=== PATIENT | female | born 1970 | race African-American/Black ===

== ENCOUNTER 2017-10-27 04:54 | Inpatient (IN) | payer OTHER ==
[2017-10-19 14:30] VITALS: BMI 38.7
[2017-10-27] MEDS ORDERED: CEFAZOLIN 2 GM in DEXTROSE 5%-WATER - 100 ML IVPB ONE (06:38)
--- NOTE | 2017-10-27 06:38 | HP ---
History & Physical Update - History History: No Change - Physical Physical: No Change - Assessment Assessment: No Change - Plan Plan: No Change (No change in my HP on 10/19/17)
[2017-10-27] MEDS ORDERED: PHENAZOPYRIDINE HCL 100 MG TABLET (FP) PO STA (06:41)
[2017-10-27] MEDS ORDERED: ROCURONIUM BROMIDE 50 MG/5 ML VIAL ONE ×2 (07:07→09:15)
[2017-10-27] MEDS ORDERED: PROPOFOL 20 ML ONE (07:07)
[2017-10-27] MEDS ORDERED: fentaNYL CITRATE 250 MCG/5 ML VIAL ONE (07:07)
[2017-10-27] MEDS ORDERED: SUCCINYLCHOLINE CHLORIDE 200 MG/10 ML VIAL ONE (07:07)
[2017-10-27] MEDS ORDERED: DEXAMETHASONE SOD PHOSPHATE 4 MG/1 ML VIAL ONE (07:07)
[2017-10-27] MEDS ORDERED: LIDOCAINE HCL/PF 2% SDV 5ML VIAL ONE (07:07)
[2017-10-27] MEDS ORDERED: MIDAZOLAM HCL 2 MG/2 ML SINGLE DOSE VIAL ONE ×3 (07:07→07:13)
[2017-10-27] MEDS ORDERED: DEXAMETHASONE SOD PHOSPHATE/PF 10 MG/ML SDV ONE (07:12)
[2017-10-27] MEDS ORDERED: ROPIVACAINE HCL 0.5% 30ML VIAL ONE (07:13)
[2017-10-27] MEDS ORDERED: DESFLURANE GAS 240 ML BOTTLE IH ONE (07:14)
[2017-10-27] MEDS ORDERED: ceFAZolin SODIUM 1 GM VIAL ONE ×2 (07:23→08:11)
[2017-10-27] MEDS ORDERED: PHENAZOPYRIDINE HCL 100 MG TABLET (FP) ONE (07:23)
[2017-10-27] MEDS ORDERED: ceFAZolin SODIUM 1 GM VIAL IVPB ONE (08:11)
[2017-10-27] MEDS ORDERED: ePHEDrine SULFATE 50 MG/1 ML AMPULE ONE (08:24)
[2017-10-27] MEDS ORDERED: PHENYLEPHRINE HCL 10 MG/1 ML SINGLE DOSE VIAL ONE (09:19)
[2017-10-27] MEDS ORDERED: GLYCOPYRROLATE 0.2 MG/1 ML VIAL ONE (09:39)
[2017-10-27] MEDS ORDERED: NEOSTIGMINE METHYLSULFATE 0.5 MG/ML - 10 ML MDV ONE (09:39)
[2017-10-27] MEDS ORDERED: PROMETHAZINE HCL 25 MG/1 ML VIAL IVPB PRN (10:03)
[2017-10-27] MEDS ORDERED: ONDANSETRON 4 MG/2 ML VIAL IVPUSH PRN (10:03)
[2017-10-27] MEDS ORDERED: DEXAMETHASONE SOD PHOSPHATE 4 MG/1 ML VIAL IVPUSH PRN (10:03)
[2017-10-27] MEDS ORDERED: HYDROmorphone *PCA* 10MG/50ML DISP.SYRIN PCA SCH (10:15)
--- NOTE | 2017-10-27 10:33 | OP ---
DATE OF OPERATION: 10/27/2017 PREOPERATIVE DIAGNOSIS: Leiomyomatous uterus, menorrhagia, intramural myomas, and subserosal myomas. OPERATION: Total abdominal hysterectomy and bilateral salpingectomy and removal of peritoneal cysts. POSTOPERATIVE DIAGNOSIS: Leiomyomatous uterus, menorrhagia, intramural myomas, and subserosal myomas SURGEON: Kenna Cottrell MD TRACK SERVICE WORKER: RAFFAELE Rocha ANESTHESIA: General. FINDINGS: Uterus to approximately 14 cm in size with multiple myomas noted within the uterus, subserosal, intramural. Tubes normal. Ovaries normal. PROCEDURE: Patient was taken to the operating room, placed in supine position, prepped and draped in the usual sterile fashion. A time-out was performed in accordance with hospital regulations after Victoria catheter had been inserted. Scalpel was then used to make a Pfannenstiel skin incision through the patients previous scar. Cautery was then used to go through the layers of abdominal wall through to the fascia. Fascia was cut in the midline, and cautery was then used to open the fascia in smiling fashion. Yung was then used to bluntly and sharply dissect the rectus muscle off the fascia. Muscle was split in the midline. Peritoneal cavity was then entered and carried up and downwards. Uterus was exteriorized. Bladder was packed out of the operative field. Utero-ovarian ligaments identified and clamped and cut bilaterally. Uterine arteries were skeletonized. Round ligaments were identified and clamped and cut using LigaSure. Uterine arteries were then clamped and cut using LigaSure bilaterally. Cardinal ligaments identified and clamped and cut down to the level of the cervix. Vagina was then entered anteriorly, and Sylvie scissors were then used to cut the cervix away from the vagina. Specimen was submitted to pathology Continuous and locking stitch in the cuff was then done. Ureter were identified and found to have peristalsis bilaterally. All pedicles were checked and found to be hemostatic. Peritoneum was then grasped and closed using 0 Vicryl suture. Muscles were approximated midline using 0 Vicryl suture. Fascia was then closed using 0 Vicryl suture in 2 parts. Subcutaneous was closed using 0 Biosyn suture. Skin was then closed using 2-0 Vicryl in a subcuticular fashion. Wounds were washed and dressed. Patient tolerated the procedure well. Estimated blood loss 600 mL. Steri-Strips had been placed. Count was correct. Abdominal sweeps had been done. Ovaries remained intact, and patient was found to be normal. Shannan [id number] MTDD
[2017-10-27] MEDS ORDERED: ELECTROLYTE-148 SOLN 1,000 ML IV SCH (11:00)
[2017-10-27] MEDS ORDERED: HYDROmorphone *PCA* 10MG/50ML DISP.SYRIN PCA ONE (11:50)
[2017-10-27] MEDS ORDERED: LACTATED RINGERS SOLUTION 1,000 ML IV SCH (13:30)
[2017-10-27] MEDS: CEFAZOLIN 1 GM/D5W 1 GM/50 ML BAG IVPB SCH ×2 (14:48→22:59)
[2017-10-27] MEDS: SIMETHICONE 80 MG TAB.CHEW (FP) PO SCH (14:48)
[2017-10-27 17:46] LABS: BASO % 0.1 % (0-2.0); HEMATOCRIT 34.9 % (32.4-45.2); HEMOGLOBIN 11.5 GM/dL (10.7-15.3); LYMPH % 3.8 % (8-40); MCH 26.3 pg (25.7-33.7); MCHC 32.9 g/dl (32.0-36.0); MEAN CELL VOLUME 79.8 fl (80-96); MEAN PLT VOLUME 9.5 fl (7.5-11.1); MONO % 1.2 % (3.8-10.2); NEUT % 94.9 % (42.8-82.8); PLATELET COUNT 196 K/MM3 (134-434); RBC 4.37 M/mm3 (3.60-5.2); RDW 14.7 % (11.6-15.6); WHITE BLOOD COUNT 11.8 K/mm3 (4.0-10.0)
[2017-10-27 18:11] LABS: ANION GAP 14 (8-16); BLOOD UREA NITROGEN 18 mg/dL (7-18); CALCIUM 8.3 mg/dL (8.5-10.1); CHLORIDE 100 mmol/L (98-107); CO2 24 mmol/L (21-32); CREATININE 1.3 mg/dL (0.55-1.02); GLUCOSE,RANDOM 181 mg/dL (74-106); POTASSIUM 3.4 mmol/L (3.5-5.1); SODIUM 138 mmol/L (136-145)
--- NOTE | 2017-10-27 18:50 | OP ---
Operative Note - Note: Operative Date: 10/27/17 Pre-Operative Diagnosis: Leiomyomatous Uterus. Intramural myoma Operation: Total Hysterectomy. Bilateral salpingectomy Findings: Uterus 12 cm Post-Operative Diagnosis: Same as Pre-op Surgeon: Kenna Cottrell Gem Expert: Josefina Reese Anesthesia: General Estimated Blood Loss (mls): 600 Operative Report Dictated: Yes
--- NOTE | 2017-10-28 08:24 | SURG ---
Surgery Digital Librarian Note Digital Librarian: Josefina Reese PA-C Date of Service: 10/27/17 Diagnosis: Leiomyomatous Uterus. Intramural myoma Procedure: Total Hysterectomy. Bilateral salpingectomy I was present for the entirety of the operative procedure. For further detail, please refer to operative report. Visit type - Case Type Case Type: Scheduled Admission - Emergency Emergency Visit: No - New patient This patient is new to me today: Yes Date on this admission: 10/28/17
[2017-10-28 08:45] LABS: BASO % 0.1 % (0-2.0); HEMATOCRIT 30.6 % (32.4-45.2); LYMPH % 6.7 % (8-40); MCH 25.7 pg (25.7-33.7); MCHC 32.5 g/dl (32.0-36.0); MEAN CELL VOLUME 79.2 fl (80-96); MEAN PLT VOLUME 9.3 fl (7.5-11.1); MONO % 3.4 % (3.8-10.2); NEUT % 89.8 % (42.8-82.8); PLATELET COUNT 173 K/MM3 (134-434); RBC 3.87 M/mm3 (3.60-5.2); RDW 14.7 % (11.6-15.6)
[2017-10-28 09:07] LABS: ANION GAP 11 (8-16); BLOOD UREA NITROGEN 14 mg/dL (7-18); CALCIUM 7.9 mg/dL (8.5-10.1); CHLORIDE 102 mmol/L (98-107); CO2 27 mmol/L (21-32); CREATININE 0.9 mg/dL (0.55-1.02); GLUCOSE,RANDOM 115 mg/dL (74-106); POTASSIUM 3.5 mmol/L (3.5-5.1); SODIUM 140 mmol/L (136-145)
[2017-10-28] MEDS ORDERED: oxyCODONE HCL 5 MG TABLET PO PRN ×2 (09:19)
--- NOTE | 2017-10-28 09:26 | PN ---
Progress Note (short form) - Note Progress Note: Surgery POD #1 Total abdominal hysterectomy with bilateral salpingectomy. Patient seen and examined at bedside. Her olivares is out and she has been OOB ambulating to the Bathroom and voiding without any problems. She states her pain is contolled but has some dizziness most likely secondary to the medication. She is tolerating a clear diet and denies any CP, SOB, Fever, Chills n/V. Vital Signs Temp 98.9 F 10/28/17 09:00 Pulse 92 H 10/28/17 05:00 Resp 20 10/28/17 09:00 BP 95/50 10/28/17 09:00 Pulse Ox 97 10/27/17 13:12 Intake & Output 10/27/17 10/27/17 10/28/17 11:59 23:59 11:59 Intake Total 2300 1100 1400 Output Total 6048 154 7379 Balance 1150 300 -200 Intake: IV 2300 600 1000 Lactated Ringers Solution 600 1,000 ml @ 75 mls/hr IV ASDIR LILIAN Rx#:[id number] Plasma-Lyte 148 - 1,000 1000 ml @ 125 mls/hr IV ASDIR LILIAN Rx#:[id number] IVPB 150 Oral 350 400 Output: Urine 101 164 2427 Olivares 400 1000 Void 600 Estimated Blood Loss 500 Other: Voiding Method Indwelling Catheter Toilet CBC, BMP 10/28/17 08:30 10/28/17 08:30 PE: A&Ox3, NAD unlabored resp on RA Abdomen: Obese, soft with diffuse TTP thoughout appropriate to status. non- distended. Incision C/D/I with steri strips, no d/c or tracking erythema B/L LE compartments soft, supple and non-tender. Scds/teds on with + pedal pulses Problem List - Problems (1) Leiomyoma Assessment/Plan: POD #1 DAYNA/salpingectomy, patient doing well. Plan: 1) Continue DVT prophylaxis with lovenox, b/l teds and scds 2) d/c PATENT LEATHER SORTER start OxyCONTIN 10mg BID 3) OOB with assist 4) d/c planing for tomorrow Code(s): D21.9 - BENIGN NEOPLASM OF CONNECTIVE AND OTHER SOFT TISSUE, UNSP
[2017-10-28] MEDS ORDERED: HYDROCHLOROTHIAZIDE 12.5 MG CAPSULE (FP) PO SCH (10:00)
[2017-10-28] MEDS ORDERED: LISINOPRIL 10 MG TABLET (FP) PO SCH (10:00)
[2017-10-28] MEDS: LISINOPRIL 10 MG TABLET (FP) PO SCH ×2 (10:14→12:28)
[2017-10-28] MEDS: HYDROCHLOROTHIAZIDE 12.5 MG CAPSULE (FP) PO SCH ×2 (10:14→12:08)
[2017-10-28] MEDS: FERROUS SO4 325 MG TABLET (FP) PO SCH (10:15)
[2017-10-28] MEDS: ENOXAPARIN NA (PORCINE) 40 MG/0.4 ML DISP.SYRIN SQ SCH (10:15)
[2017-10-28] MEDS: SIMETHICONE 80 MG TAB.CHEW (FP) PO SCH (10:15)
[2017-10-28] MEDS: oxyCODONE HCL 10 MG SUSTAINED ACTING TABLET PO SCH ×2 (11:14→21:45)
--- NOTE | 2017-10-28 13:55 | PATH ---
Surgical Pathology Report Patient Name: LUKE NG [facility]. Rec. 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 Specimen(s) Received A: PERITONEAL CYST B: UTERUS CERVIX BILATERAL FALLOPIAN TUBES Clinical History Leiomyoma of uterus Final Diagnosis A. PERITONEAL CYST, EXCISION: BENIGN MESOTHELIAL CYSTS. B. UTERUS AND CERVIX WITH BILATERAL FALLOPIAN TUBES, HYSTERECTOMY AND BILATERAL SALPINGECTOMY: UTERUS AND CERVIX, 601 GRAMS, WITH LEIOMYOMATA WITH DEGENERATIVE CHANGES, ADENOMYOSIS, SECRETORY ENDOMETRIUM, AND ACUTE AND CHRONIC INFLAMMATION OF CERVIX. BENIGN BILATERAL FALLOPIAN TUBES PRESENT. Electronically Signed Beau Fagan M.D. Gross Description A. Received in formalin labeled "peritoneal cyst," are 2 intact cysts measuring 2.4 x 1.3 x 0.3 cm and 5.5 x 4.3 x 0.7 cm. The cysts are translucent and contain yellow serous fluid. Manager Primary sections are submitted in one cassette. B. Received in formalin labeled "uterus, cervix, bilateral fallopian tubes," is a 601 g uterus with an attached cervix and bilateral attached fallopian tubes. The specimen measures 15 cm from superior to inferior, 10 cm from left to right and 9.5 cm from anterior to posterior. The serosa is giordano-pink and smooth. The attached cervix measures 5 cm in length and averages 2.7 cm in diameter. The ectocervix is pink-giordano, smooth and glistening. The endocervix is unremarkable. The endometrial cavity measures 5 cm in length and 2.4 cm from cornu to cornu. The endometrium is giordano-red and averages 0.2 cm in thickness. There are multiple intramural nodules present, measuring up to 7 cm in greatest dimension. The largest intramural nodule displays degenerative changes. The remaining myometrium is giordano-pink and measures up to 7 cm in thickness. The left fimbriated fallopian tube measures 5 cm in length. The outer surface is hylton purple and smooth. Sectioning reveals an unremarkable lumen. The right fimbriated fallopian tube measures 5 cm in length. The outer surface is hylton purple with a 1.8 cm in greatest dimension paratubal cyst attached. Sectioning of the fallopian tube reveals an unremarkable lumen. Manager Primary sections are submitted in 14 cassettes as follows: 1-anterior cervix; 2-posterior cervix; 2-1-wxlnpyyp endomyometrium; 1-5-xnwipmlig endomyometrium; 7-9-largest intramural nodule; 10-additional intramural nodules; 11-left fallopian tube fimbria; 12-cross sections of left fallopian tube; 13-right fallopian tube fimbria; 14-cross sections of right fallopian tube and paratubal cyst. 10/27/2017 [facility]10/27/2017
--- NOTE | 2017-10-28 15:20 | PN ---
Progress Note (short form) - Note Progress Note: Anesthesia Pos op note, BUFFER CHROME note. POD#1, S/P DAYNA , bilateral salpingectomy, under GETA , BUFFER CHROME post op. Pat seen and examined. VSS. Pain well controlled. BUFFER CHROME, D/C'd. on po meds. No apparent post anesthesia complications.Signed off.
--- NOTE | 2017-10-29 06:46 | DS ---
"Physical Exam-PRODUCER DIRECTOR Vital Signs: Vital Signs Temperature 99.6 F 10/29/17 05:00 Pulse Rate 84 10/29/17 05:00 Respiratory Rate 20 10/29/17 05:00 Blood Pressure 94/63 10/29/17 05:00 O2 Sat by Pulse Oximetry (%) 97 10/28/17 21:00 Constitutional: Yes: Well Nourished, No Distress Neck: Yes: WNL, Supple Gastrointestinal: Yes: WNL, Soft, Abdomen, Obese Breast(s): Yes: WNL Musculoskeletal: Yes: WNL Wound/Incision: Yes: Clean/Dry, Well Approximated, Steri Strips, Dressing Dry and Intact Neurological: Yes: WNL, Alert, Oriented Labs: CBC, BMP 10/28/17 08:30 10/28/17 08:30 Discharge Summary Reason For Visit: LEIOMYOMA OF UTERUS Current Active Problems Leiomyoma (Acute) Procedures: Principal: Total abdominal hysterectomy. bilateral salpingectomy Condition: Good - Instructions Diet, Activity, Other Instructions: Dr. Kenan Cottrell Electrical And Instrumentation Manager discharge instructions Physical activity Resume your normal everyday activity as tolerated no heavy lifting or exercise until seen by your surgeon. You may walk unlimited candelario of and climb stairs. You may resume driving the car when you feel safe and comfortable behind the wheel and are not taking narcotics. No sexual activity as instructed by Dr. Cottrell. Wound care If you have a bandage, leave it on, and keep dry for 48-72 hours. After that time discard the outer bandage. The tapes on the skin under the outer bandage should be left in place. They will peel off in the next 7 to 10 days. Do Not Peel them off. You may shower the day but do not submerge the incision. Do not apply any lotions or ointments to the incision. Diet There are no dietary restrictions. Eat healthy, high-fiber foods. Drink 6 to 8 glasses of liquid each day. This will assist in keeping your bowels are regular. Pain management You may take Tylenol or acetaminophen or Ibuprofen (for example, Motrin, Advil etc.) from my pain prescription medication is ordered should be taken as prescribed for moderate to severe pain. Please note that your prescription contains Tylenol and additional Tylenol should not be taken at the same time as this may result in and overdose. Call Dr. Cottrell for any of the following: Severe pain not relieved by medication Fever of 101 or higher Excessive bleeding or drainage on dressing Inability to urinate If you experience any chest pain or shortness of breath seek emergency treatment immediately. Call the office at [phone] to confirm your follow up appointment approximately 7 days post-op. This report was requested by: Josefina Beltran | Reference #: [id number] Disposition: HOME - Home Medications Comprehensive Discharge Medication List: Ambulatory Orders Ferrous Sulfate [Feosol] 325 mg PO DAILY 10/19/17 Lisinopril/Hydrochlorothiazide [Lisinopril-Hctz 20-12.5 mg Tab] 10 mg PO DAILY 10/19/17 Oxycodone HCl/Acetaminophen [Percocet 5-325 mg Tablet] 1 - 2 tab PO Q4H #20 tablet MDD 6 10/27/17"
[2017-10-29 08:31] LABS: HEMOGLOBIN 9.7 GM/dL (10.7-15.3); MCH 26.9 pg (25.7-33.7); MCHC 33.5 g/dl (32.0-36.0); MEAN CELL VOLUME 80.2 fl (80-96); MEAN PLT VOLUME 8.8 fl (7.5-11.1); PLATELET COUNT 158 K/MM3 (134-434); RBC 3.62 M/mm3 (3.60-5.2); RDW 14.5 % (11.6-15.6); WHITE BLOOD COUNT 8.2 K/mm3 (4.0-10.0)
[2017-10-29] MEDS: SIMETHICONE 80 MG TAB.CHEW (FP) PO SCH (09:25)
[2017-10-29] MEDS: FERROUS SO4 325 MG TABLET (FP) PO SCH (09:25)
[2017-10-29] MEDS: oxyCODONE HCL 10 MG SUSTAINED ACTING TABLET PO SCH (09:25)
[2017-10-29] MEDS: ENOXAPARIN NA (PORCINE) 40 MG/0.4 ML DISP.SYRIN SQ SCH (09:25)
[2017-10-29] MEDS: HYDROCHLOROTHIAZIDE 12.5 MG CAPSULE (FP) PO SCH (09:36)
[2017-10-29] MEDS: LISINOPRIL 10 MG TABLET (FP) PO SCH (09:37)
[2017-10-29 09:48] VITALS: BP 106/70; PULSE 87; TEMP 99
== END 2017-10-29 13:00 | disposition home or self-care (01) | DRG 743 ==
LOC: JSAMEDAYSX 04:54 → EDSTATUS 08:00 → J3W 12:47
PROVIDERS: ADMIT Obstetrics & Gynecology; ATTEND Obstetrics & Gynecology
PROC: 0UB70ZZ Excision of Bilateral Fallopian Tubes, Open Approach (ICD-10-PCS; 2017-10-27)
PROC: 0DBW0ZZ Excision of Peritoneum, Open Approach (ICD-10-PCS; 2017-10-27)
PROC: 0UT90ZZ Resection of Uterus, Open Approach (ICD-10-PCS; principal; 2017-10-27 07:30)
DX: D25.1 Intramural leiomyoma of uterus (principal); D25.2 Subserosal leiomyoma of uterus; K66.8 Other specified disorders of peritoneum; N92.0 Excessive and frequent menstruation with regular cycle
CPT/HCPCS: 36415; 80048; 84702; 85025; 85027; 86850; 86900; 86901; 94760

== ENCOUNTER 2019-10-16 17:06 | Inpatient (IN) | payer OTHER ==
[2019-10-16] MEDS ORDERED: ACETAMINOPHEN 325 MG TABLET (FP) PO ONE (17:30)
--- NOTE | 2019-10-16 17:30 | PDOC ---
Rapid Medical Evaluation Chief Complaint: Respiratory Time Seen by Provider: 10/16/19 17:19 Medical Evaluation: Allergies Allergy/AdvReac Type Severity Reaction Status Date / Time No Known Allergies Allergy Verified 10/27/17 07:18 10/16/19 17:26 I have performed a brief in-person evaluation of this patient. The patient presents with a chief complaint of: pt with h/o HTN present with complains of 2 weeks h/o persistent cough, weakness, body aches, N/V. pt report tested positive for influenza 2 weeks ago and has been taken many OTC meds but her symptoms is getting worse instead of getting better. Pt report weakness and whole body aches. Denies any recent travel or sick contact Pertinent physical exam findings: febrile of 100.6F. persistent cough throughout exam. pt looks sick. lungs CTAB. I have ordered the following: CXR, Tylenol, duoneb The patient will proceed to the ED for further evaluation. Discharge Disposition - Diagnosis URI with cough and congestion - Discharge Dispostion Condition at time of disposition: Stable - Referrals - Patient Instructions - Post Discharge Activity
[2019-10-16] MEDS ORDERED: ACETAMINOPHEN 325 MG TABLET (FP) ONE (17:58)
[2019-10-16] MEDS ORDERED: LACTATED RINGERS SOLUTION 1000 ML INFUS.BAG IV ONE (18:30)
--- NOTE | 2019-10-16 19:39 | PDOC ---
History of Present Illness - General Chief Complaint: Shortness of Breath Stated Complaint: COUGH/ BODY CHILLS Time Seen by Provider: 10/16/19 17:19 History Source: Patient Exam Limitations: No Limitations - History of Present Illness Initial Comments: 49 y/o female presenting to [facility] complaining of worsening SOB, cough, fevers, chills, fatigue, and intermittent episodes of nonbloody, non-bilious vomiting. Was seen as this facility two weeks ago and diagnosed with Influenza B. Pt has been using OTC NSAIDS and Acetaminophen without improvement in symptoms. 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 Sick Contacts: Yes, believes a coworker is a PUI for COVID-19 Recent Travel: No Pt's Cell Past History - Past Medical History Allergies/Adverse Reactions: Allergies Allergy/AdvReac Type Severity Reaction Status Date / Time No Known Allergies Allergy Verified 10/16/19 17:27 Home Medications: Ambulatory Orders Ferrous Sulfate [Feosol] 325 mg PO DAILY 10/19/17 Lisinopril/Hydrochlorothiazide [Lisinopril-Hctz 20-12.5 mg Tab] 10 mg PO DAILY 10/19/17 Oxycodone HCl/Acetaminophen [Percocet 5-325 mg Tablet] 1 - 2 tab PO Q4H #20 tablet MDD 6 10/27/17 Anemia: No Asthma: Yes Cancer: No Cardiac Disorders: No CVA: No CHF: No Dementia: No Diabetes: No GI Disorders: No Disorders: No HTN: Yes Hypercholesterolemia: No Liver Disease: No Seizures: No Thyroid Disease: No - Surgical History Abdominal Surgery: Yes - Psycho Social/Smoking Cessation Hx Smoking History: Never smoked Hx Alcohol Use: No Drug/Substance Use Hx: No Substance Use Type: Alcohol Hx Substance Use Treatment: No Review of Systems - Review of Systems All Other Systems: Reviewed and Negative *Physical Exam - Vital Signs Last Vital Signs Temp Pulse Resp BP Pulse Ox 100.6 F H 127 H 20 102/66 99 10/16/19 17:27 10/16/19 17:27 10/16/19 18:05 10/16/19 17:27 10/16/19 18:05 - Physical Exam Vital signs and nursing notes reviewed. Constitutional- Obese adult female in no acute distress but mild obvious discomfort. Found semi-fowlers on hospital stretcher. Answered all questions appropriately and completely. Head- Normocephalic. No obvious external signs of trauma. Neck- Supple, trachea is midline. Cardiovascular / Chest- Tachycardic rate with regular rhythm. No murmur, rubs, clicks, or gallops. Peripheral pulses- radial pulses full. Respiratory- Breathing mildly tachypneic and shallow. Frequent cough during interview. Equal chest rise and fall. Clear to auscultation bilaterally. No stridor, no wheezing, no rhonchi. Gastrointestinal- abdomen is soft, non-tender, non-distended. Neuro- Alert and oriented x4. Moving all four extremities spontaneously. Skin- Warm, dry, and intact. Psych- Affect- appropriate. Mood- normal. Speech was non-labored, non- pressured. ED Treatment Course - LABORATORY CBC & Chemistry Diagram: 10/16/19 19:08 10/16/19 19:08 - Medications Given in the ED: ED Medications Discontinued Medications Generic Name Dose Route Start Last Admin Trade Name Freq PRN Reason Stop Dose Admin Acetaminophen 975 mg 10/16/19 17:30 10/16/19 18:50 Tylenol - PO 10/16/19 17:31 975 mg ONCE ONE Administration Lactated Ringer's 2,000 ml 10/16/19 18:30 10/16/19 19:29 Lactated Ringers Solution IV 10/16/19 18:31 2,000 ml ONCE ONE Administration Medical Decision Making - Medical Decision Making 49 y/o female presenting with viral URI symptoms that have worsened over the past two weeks. Possible COVID-19 exposure. Febrile at triage; given Tylenol. Vitals remarkable for tachycardia without hypotension at triage. HR trended downward after LR IVFB. Normoxic on room air. Physical exam as described above. Ordered ED COVID order set. CBC remarkable for mild leukopenia. Noted mild hyponatremia and mild alkalosis on ABG, suspect secondary to dehydration. Chest CT remarkable bilateral GGOs concerning for COVID-19 infection. Will admit the pt as symptoms have persistently worsened for >2 weeks, and subjective worsening in respiratory status. .16 Oct 2019 22:53 PM Telephone discussion with resident Dr. Kim. Verbally appraised of the pts HPI, ED course, and current plan of management. Will admit pt to med/surg for attending Dr. Kim. Kane Oquendo M.D., PGY2 Emergency Medicine Resident Discharge - Discharge Information Problems reviewed: Yes Clinical Impression/Diagnosis: URI with cough and congestion, Tachycardia Leukopenia Qualifiers: Leukopenia type: unspecified Qualified Code(s): D72.819 - Decreased white blood cell count, unspecified Febrile Qualifiers: Fever type: unspecified Qualified Code(s): R50.9 - Fever, unspecified Condition: Stable - Admission Yes - Follow up/Referral Referrals: Judith Mora MD [Primary Care Provider] - CallBack Reminder: COVID - Patient Discharge Instructions - Post Discharge Activity
--- NOTE | 2019-10-16 19:42 | PDOC ---
Attending Attestation - Resident Resident Name: Kane Oquendo - ED Attending Attestation I have performed the following: I have examined & evaluated the patient, The case was reviewed & discussed with the resident, I agree w/resident's findings & plan, Exceptions are as noted - HPI HPI: 10/16/19 19:40 49-year-old female presents because she has had fever and cold coughing and shortness of breath since last Tuesday. HPI she was diagnosed with influenza B on September 24 and that her symptoms seem to resolve until last Tuesday when she started again to have myalgias fever chills cough shortness of breath. - Physicial Exam PE: 10/16/19 22:19 Alert and conversant 49-year-old woman presents with fever cough Head normocephalic atraumatic Neck is supple Lungs clear to auscultation bilaterally CVS tachycardia Abdomen protuberant but nontender Skin warm and dry Neuro alert and oriented x3, ambulatory - Medical Decision Making 10/16/19 22:38 49-year-old female presents with fever ,cough ,congestion that started Tuesday and is continued to worsen History of influenza B diagnosed earlier this month. She felt her symptoms got better but since last Tue she has felt more short of breath CAT scan of the chest shows groundglass infiltrates concerning for COVID Discharge - Discharge Information Problems reviewed: Yes Clinical Impression/Diagnosis: URI with cough and congestion, Tachycardia Leukopenia Qualifiers: Leukopenia type: unspecified Qualified Code(s): D72.819 - Decreased white blood cell count, unspecified Febrile Qualifiers: Fever type: unspecified Qualified Code(s): R50.9 - Fever, unspecified Condition: Stable - Follow up/Referral - Patient Discharge Instructions - Post Discharge Activity
[2019-10-16 19:45] LABS: ARTERIAL BLD GAS O2 SATURATION 94.6 % (95-98); ARTERIAL BLOOD GAS BASE EXCESS 3.7 meq/l (-2-2); ARTERIAL BLOOD GAS PCO2 39.4 mmHg (35-45); ARTERIAL BLOOD GAS PO2 72.1 mmHg (80-100); ARTERIAL BLOOD GAS pH 7.46 (7.35-7.45); CARBOXYHEMOGLOBIN 0.6 % (0-2)
[2019-10-16 20:02] LABS: BASO % 0.4 % (0-2.0); EOS % 0.1 % (0-4.5); HEMATOCRIT 43.5 % (32.4-45.2); HEMOGLOBIN 14.1 GM/dL (10.7-15.3); LYMPH % 32.1 % (8-40); MCH 25.8 pg (25.7-33.7); MCHC 32.4 g/dl (32.0-36.0); MEAN CELL VOLUME 79.6 fl (80-96); MEAN PLT VOLUME 10.1 fl (7.5-11.1); MONO % 8.5 % (3.8-10.2); NEUT % 58.9 % (42.8-82.8); PLATELET COUNT 146 K/MM3 (134-434); RBC 5.47 M/mm3 (3.60-5.2); RDW 14.1 % (11.6-15.6); WHITE BLOOD COUNT 3.6 K/mm3 (4.0-10.0)
[2019-10-16 20:09] LABS: INR 1.17 (0.83-1.09); PROTHROMBIN TIME (PATIENT) 13.8 SEC (9.7-13.0)
[2019-10-16 20:11] LABS: ACTIVATED PTT 34.9 SECONDS (25.2-36.5)
[2019-10-16] MEDS ORDERED: IBUPROFEN 600 MG TABLET (FP) PO ONE ×2 (20:20→23:02)
[2019-10-16 20:36] LABS: ALBUMIN 3.5 g/dl (3.4-5.0); BILIRUBIN,DIRECT 0.1 mg/dL (0.0-0.2); BILIRUBIN,TOTAL 0.4 mg/dL (0.2-1); BLOOD UREA NITROGEN 12.8 mg/dL (7-18); CALCIUM 8.5 mg/dL (8.5-10.1); CREATININE 1.3 mg/dL (0.55-1.3); POTASSIUM 3.7 mmol/L (3.5-5.1)
--- NOTE | 2019-10-16 23:43 | HP ---
PCP: Dr. Judith Burrell ([facility]) HISTORY OF PRESENT ILLNESS: This is a 49 y/o female with a PMHx of HTN, presenting to [facility] ER complaining of worsening SOB, nonproductive cough, fevers (101 last night), chills, sore throat, fatigue, myalgia. Furthermore, pt admits to intermittent episodes of nonbloody, non-bilious vomiting since last evening. Was seen two weeks ago and diagnosed with Influenza B but not treated with Tamiflu. Reports this has been ongoing since tuesday after she was at [employer] [place]. She had a severe headache as well possibly due to the coughing. Pt has been using acetaminophen without improvement in symptoms. 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 Denies any recent travel. Denies any cp, bowel/bladder complaints. Pt's Cell ER course was notable for: (1)wbc- 3.6, Na- 135, (2)ABG- 7.46, CP2-39, O2- 72, 94.6 % (3) CT chest- multiple small b/l upper lobe and RLL ground glass opacities/infiltrates, alveolar infiltrates within lower lobes b/l. Main pulmonary artery prominent 3 cm in diameter. Enlarged Lt thyroid with contralateral tracheal displacement. CXR negative PAST SURGICAL HISTORY: c section, hysterectomy Social History: Smoking:denies Alcohol:occasional Drugs: never Allergies No Known Allergies Allergy (Verified 10/16/19 17:27) HOME MEDICATIONS: Home Medications Medication Instructions Recorded Ferrous Sulfate [Feosol] 325 mg PO DAILY 10/19/17 Lisinopril/Hydrochlorothiazide 10 mg PO DAILY 10/19/17 [Lisinopril-Hctz 20-12.5 mg Tab] Oxycodone HCl/Acetaminophen 1 - 2 tab PO Q4H #20 tablet MDD 6 10/27/17 [Percocet 5-325 mg Tablet] REVIEW OF SYSTEMS negative except above PHYSICAL EXAMINATION Vital Signs - 24 hr 10/16/19 10/16/19 10/16/19 17:19 17:27 18:05 Temperature 100.6 F H 100.6 F H Pulse Rate 127 H 127 H Pulse Rate [ Left Radial] Respiratory 19 20 20 Rate Blood Pressure 102/66 102/66 Blood Pressure [Left Arm] O2 Sat by Pulse 98 99 99 Oximetry (%) 10/16/19 10/16/19 20:01 20:21 Temperature 100.9 F H Pulse Rate 102 H Pulse Rate [ 102 H Left Radial] Respiratory 18 Rate Blood Pressure Blood Pressure 129/80 [Left Arm] O2 Sat by Pulse 98 98 Oximetry (%) GENERAL: Awake, alert, and fully oriented, in no acute distress. LUNGS: Breath sounds reduced b/l, no wheezing or crackles, or accesory respiratory muscle use HEART: Regular rate and rhythm, normal S1 and S2 without murmur, rub or gallop. ABDOMEN: Soft, nontender, not distended, normoactive bowel sounds, no guarding, no rebound. LOWER EXTREMITIES: 2+ pulses, warm, well-perfused. No calf tenderness. No peripheral edema. NEUROLOGICAL: Cranial nerves II-XII grossly intact. Normal speech. PSYCHIATRIC: Cooperative. Good eye contact. Appropriate mood and affect. SKIN: Warm, dry, no rashes or lesions noted. Laboratory Results - last 24 hr 10/16/19 10/16/19 10/16/19 19:08 19:08 19:08 WBC RBC Hgb Hct MCV MCH MCHC RDW Plt Count MPV Absolute Neuts (auto) Neutrophils % Lymphocytes % Monocytes % Eosinophils % Basophils % Nucleated RBC % PT with INR 13.80 H INR 1.17 H PTT (Actin FS) 34.9 D-Dimer 1307 H Anticoagulation Therapy Puncture Site ABG pH ABG pCO2 at Pt Temp ABG pO2 at Pt Temp ABG HCO3 ABG O2 Sat (Measured) ABG O2 Content ABG Base Excess Tra Test Carboxyhemoglobin Methemoglobin Patient On Oxygen O2 Delivery Device Oxygen Flow Rate Vent Mode Vent Rate Mechanical Rate Pressure Support Vent Sodium Potassium Chloride Carbon Dioxide Anion Gap BUN Creatinine Est GFR (CKD-EPI)AfAm Est GFR (CKD-EPI)NonAf Random Glucose Lactic Acid Calcium Total Bilirubin Direct Bilirubin AST ALT Alkaline Phosphatase Troponin I < 0.02 Total Protein Albumin HIV Ag/Ab Combo Qual Influenza A (Rapid) Influenza B (Rapid) RSV Rapid 10/16/19 10/16/19 10/16/19 19:08 19:08 19:08 WBC 3.6 L RBC 5.47 H Hgb 14.1 Hct 43.5 D MCV 79.6 L MCH 25.8 MCHC 32.4 RDW 14.1 Plt Count 146 MPV 10.1 D Absolute Neuts (auto) 2.1 Neutrophils % 58.9 D Lymphocytes % 32.1 D Monocytes % 8.5 D Eosinophils % 0.1 D Basophils % 0.4 D Nucleated RBC % 0 PT with INR INR PTT (Actin FS) D-Dimer Anticoagulation Therapy Puncture Site ABG pH ABG pCO2 at Pt Temp ABG pO2 at Pt Temp ABG HCO3 ABG O2 Sat (Measured) ABG O2 Content ABG Base Excess Tra Test Carboxyhemoglobin Methemoglobin Patient On Oxygen O2 Delivery Device Oxygen Flow Rate Vent Mode Vent Rate Mechanical Rate Pressure Support Vent Sodium Potassium Chloride Carbon Dioxide Anion Gap BUN Creatinine Est GFR (CKD-EPI)AfAm Est GFR (CKD-EPI)NonAf Random Glucose Lactic Acid Calcium Total Bilirubin Direct Bilirubin AST ALT Alkaline Phosphatase Troponin I Total Protein Albumin HIV Ag/Ab Combo Qual Negative Influenza A (Rapid) Negative Influenza B (Rapid) Negative RSV Rapid 10/16/19 10/16/19 10/16/19 19:08 19:08 19:08 WBC RBC Hgb Hct MCV MCH MCHC RDW Plt Count MPV Absolute Neuts (auto) Neutrophils % Lymphocytes % Monocytes % Eosinophils % Basophils % Nucleated RBC % PT with INR INR PTT (Actin FS) D-Dimer Anticoagulation Therapy Puncture Site ABG pH ABG pCO2 at Pt Temp ABG pO2 at Pt Temp ABG HCO3 ABG O2 Sat (Measured) ABG O2 Content ABG Base Excess Tra Test Carboxyhemoglobin Methemoglobin Patient On Oxygen O2 Delivery Device Oxygen Flow Rate Vent Mode Vent Rate Mechanical Rate Pressure Support Vent Sodium 135 L Potassium 3.7 Chloride 100 Carbon Dioxide 25 Anion Gap 10 BUN 12.8 Creatinine 1.3 Est GFR (CKD-EPI)AfAm 56.58 Est GFR (CKD-EPI)NonAf 48.81 Random Glucose 81 Lactic Acid 1.4 Calcium 8.5 Total Bilirubin 0.4 Direct Bilirubin 0.1 AST 27 ALT 24 Alkaline Phosphatase 50 Troponin I Total Protein 8.0 Albumin 3.5 HIV Ag/Ab Combo Qual Influenza A (Rapid) Influenza B (Rapid) RSV Rapid Negative 10/16/19 19:15 WBC RBC Hgb Hct MCV MCH MCHC RDW Plt Count MPV Absolute Neuts (auto) Neutrophils % Lymphocytes % Monocytes % Eosinophils % Basophils % Nucleated RBC % PT with INR INR PTT (Actin FS) D-Dimer Anticoagulation Therapy No Result Required. Puncture Site No Result Required. ABG pH 7.46 H ABG pCO2 at Pt Temp 39.4 ABG pO2 at Pt Temp 72.1 L ABG HCO3 27.3 H ABG O2 Sat (Measured) 94.6 L ABG O2 Content 21.5 ABG Base Excess 3.7 H Tra Test No Result Required. Carboxyhemoglobin 0.6 Methemoglobin 1.0 Patient On Oxygen No Result Required. O2 Delivery Device No Result Required. Oxygen Flow Rate No Result Required. Vent Mode No Result Required. Vent Rate No Result Required. Mechanical Rate No Result Required. Pressure Support Vent No Result Required. Sodium Potassium Chloride Carbon Dioxide Anion Gap BUN Creatinine Est GFR (CKD-EPI)AfAm Est GFR (CKD-EPI)NonAf Random Glucose Lactic Acid Calcium Total Bilirubin Direct Bilirubin AST ALT Alkaline Phosphatase Troponin I Total Protein Albumin HIV Ag/Ab Combo Qual Influenza A (Rapid) Influenza B (Rapid) RSV Rapid ASSESSMENT/PLAN: This is a 49 y/o female with a PMHx of HTN, presenting to [facility] ER complaining of worsening SOB, nonproductive cough, fevers (101 last night), chills, sore throat, fatigue, myalgia. Furthermore, pt admits to intermittent episodes of nonbloody, non-bilious vomiting since last evening. Was seen two weeks ago and diagnosed with Influenza B but not treated with Tamiflu. #Sepsis 2/2 COVID vs PNA - must rule out COVID with pt's risk factors and presenting symptoms - will avoid NSAIDS, NIPPV, High flow, duonebs at this time to prevent aerosolization - tylenol PO for fevers >100.4 - low threshold for intubation. - if pt desaturates, will step up oxygenation as follows: NC-> Non-rebreather - CT chest- multiple small b/l upper lobe and RLL ground glass opacities/infiltrates, alveolar infiltrates within lower lobes b/l. Main pulmonary artery prominent 3 cm in diameter. Enlarged Lt thyroid with contralateral tracheal displacement. will need o/p thyroid sono - CXR negative - pt sob, fever, cough, and recent exposure meeting criteria to be tested. ID (Gutierrez) consulted- antivirals/plaquenil as per ID, will start ceftriaxone 1g daily, azithro 500 IV daily to Rx for CAP in interim until ID evaluates - leukopenic, pt meets sepsis criteria - COVID testing sent, as well as viral panel - RSV, INfluenza B,A, HIV negative - L.A. 1.2 - UA strep, legionella ordered - blood culture, urine cx, sputum culture - D dimer 1307 likely inflammatory marker in setting of covid, cannot exclude PE - procalcitonin ordered to assess if viral etiology (if low think viral) #Mild Hyponatremia - 2/2 contraction alkalosis from dehydration - ABG showing 7.46, CP2-39, O2- 72, 94.6 % - rpt bmp in AM - serum, urine osm's ordered #HTN - HCTZ hold in setting of hyponatremia - will continue MARYSOL even in COVID state given lack of concrete evidence to suggest stopping it in covid patients. - monitor BP DVT PPX: Lovenox 40 ATTENDING PHYSICIAN STATEMENT I saw and evaluated the patient. I reviewed the resident's note and discussed the case with the resident. I agree with the resident's findings and plan as documented. SUBJECTIVE: OBJECTIVE: ASSESSMENT AND PLAN:
[2019-10-16] MEDS ORDERED: SODIUM CHLORIDE 1,000 ML IV SCH (23:45)
[2019-10-17] MEDS ORDERED: VANCOMYCIN HCL 1,500 MG in DEXTROSE 5%-WATER - 500 ML IVPB SCH (00:15)
--- NOTE | 2019-10-17 00:24 | PN ---
Teaching Attending Note Name of Resident: Ellis Kim ATTENDING PHYSICIAN STATEMENT I saw and evaluated the patient. I reviewed the resident's note and discussed the case with the resident. I agree with the resident's findings and plan as documented. SUBJECTIVE: 49 year old female complaining of worsening SOB, cough, fevers, chills, fatigue, and intermittent episodes of nonbloody, non-bilious vomiting. Patient lives with her and 2 children and her grandchild who are reportedly healthy. She reports being diagnosed with influenza A about 2 weeks ago and recovered about 1 week ago however shortly after developed symptoms of shortness of breath and cough once again. OBJECTIVE: Last Vital Signs Temp Pulse Resp BP Pulse Ox 99.8 F H 89 19 145/86 95 10/16/19 23:45 10/16/19 23:45 10/16/19 23:45 10/16/19 23:45 10/16/19 23:45 On physical exam patient was nontoxic-appearing, slightly diaphoretic, morbidly obese. Head was atraumatic and normocephalic. Moist oral mucosa. Abdomen was soft, nontender with no masses appreciated. Skin was clear with no rashes. Lower extremities with no pedal edema. Abnormal Lab Results 10/16/19 10/16/19 10/16/19 19:08 19:08 19:08 WBC 3.6 L RBC 5.47 H MCV 79.6 L PT with INR 13.80 H INR 1.17 H D-Dimer 1307 H ABG pH ABG pO2 at Pt Temp ABG HCO3 ABG O2 Sat (Measured) ABG Base Excess Sodium 10/16/19 10/16/19 19:08 19:15 WBC RBC MCV PT with INR INR D-Dimer ABG pH 7.46 H ABG pO2 at Pt Temp 72.1 L ABG HCO3 27.3 H ABG O2 Sat (Measured) 94.6 L ABG Base Excess 3.7 H Sodium [address] showed small bilateral upper lobe and right lower lobe groundglass infiltrates suggestive of covid 19 pneumonitis. Alveolar infiltrates within the lower lobes bilaterally. Pulmonary artery appears to be slightly prominent. Enlargement of the partially imaged left thyroid lobe. ASSESSMENT AND PLAN: 49-year-old woman with sepsis likely secondary to covid 19 versus multifocal community-acquired pneumonia possibly a complication from recent influenza. Fever and tachycardia, leukopenia. Appears to be oxygenating well and saturating well.Appears to be mildly hypoxemic SPO2 is only 72on room air? Admit to MedSurg Blood cultures x2 Sputum culture Urine Legionella antigen Urine strep antigen Contact Isolation Infectious disease consultation Ceftriaxone and azithromycin Supplemental oxygen as needed Monitor vital signs closely Monitor oxygen saturation covid 19 nasopharyngeal PCR Tylenol PRN if fever #Partially enlarged left thyroid lobe Would obtain thyroid ultrasound as an outpatient for further work-up TSH #Hypertension Continue lisinopril and hydrochlorothiazide #DVT prophylaxisheparin subcutaneously
[2019-10-17] MEDS ORDERED: VANCOMYCIN HCL 1,500 MG in DEXTROSE 5%-WATER - 500 ML IVPB ONE (01:00)
[2019-10-17] MEDS ORDERED: CEFEPIME 2 GM in DEXTROSE 5%-WATER - 50 ML IVPB SCH (02:00)
[2019-10-17] MEDS ORDERED: CEFEPIME HCL/D5W 2 GM/50 ML BAG IVPB SCH (02:00)
[2019-10-17] MEDS: AZITHROMYCIN IVPB 500 MG/250 ML BAG IVPB SCH ×2 (02:20→10:09)
[2019-10-17] MEDS ORDERED: AZITHROMYCIN IVPB 500 MG/250 ML BAG IVPB ONE ×2 (02:46→08:42)
[2019-10-17 07:18] LABS: BASO % 0.4 % (0-2.0); EOS % 0.3 % (0-4.5); HEMATOCRIT 38.7 % (32.4-45.2); HEMOGLOBIN 12.6 GM/dL (10.7-15.3); LYMPH % 41.1 % (8-40); MCH 25.8 pg (25.7-33.7); MCHC 32.5 g/dl (32.0-36.0); MEAN CELL VOLUME 79.5 fl (80-96); MEAN PLT VOLUME 9.2 fl (7.5-11.1); MONO % 7.6 % (3.8-10.2); NEUT % 50.6 % (42.8-82.8); PLATELET COUNT 104 K/MM3 (134-434); RBC 4.87 M/mm3 (3.60-5.2); RDW 14.2 % (11.6-15.6); WHITE BLOOD COUNT 2.3 K/mm3 (4.0-10.0)
[2019-10-17 08:21] LABS: ALK PHOS 40 U/L (45-117); ANION GAP 6 MMOL/L (8-16); BILIRUBIN,TOTAL 0.4 mg/dL (0.2-1); BLOOD UREA NITROGEN 13.1 mg/dL (7-18); CALCIUM 7.7 mg/dL (8.5-10.1); CHLORIDE 103 mmol/L (98-107); CO2 29 mmol/L (21-32); CREATININE 1.1 mg/dL (0.55-1.3); GLUCOSE,RANDOM 76 mg/dL (74-106); MAGNESIUM 1.9 mg/dL (1.8-2.4); PHOSPHOROUS 3.1 mg/dL (2.5-4.9); POTASSIUM 3.3 mmol/L (3.5-5.1); SGOT/AST 24 U/L (15-37); SGPT/ALT 22 U/L (13-61); SODIUM 137 mmol/L (136-145); TOT PROT 6.6 g/dl (6.4-8.2)
[2019-10-17] MEDS ORDERED: LISINOPRIL 20 MG TABLET (FP) ONE (08:42)
[2019-10-17] MEDS ORDERED: ENOXAPARIN NA (PORCINE) 40 MG/0.4 ML DISP.SYRIN SQ ONE (08:43)
[2019-10-17] MEDS ORDERED: CEFTRIAXONE 1 GM/50 ML BAG ONE (08:43)
[2019-10-17] MEDS ORDERED: POTASSIUM CHLORIDE TABS 20 MEQ TABLET.ER (FP) PO ONE ×2 (09:01→09:28)
[2019-10-17] MEDS ORDERED: LISINOPRIL 20 MG TABLET (FP) PO SCH (10:00)
[2019-10-17] MEDS: CEFTRIAXONE 1 GM in DEXTROSE 5%-WATER - 50 ML IVPB SCH (10:00)
[2019-10-17] MEDS: ENOXAPARIN NA (PORCINE) 40 MG/0.4 ML DISP.SYRIN SQ SCH (10:08)
--- NOTE | 2019-10-17 10:18 | EKG ---
Test Reason : Blood Pressure : / mmHG Vent. Rate : 100 BPM Atrial Rate : 100 BPM P-R Int : 154 ms QRS Dur : 084 ms QT Int : 336 ms P-R-T Axes : 034 -20 026 degrees QTc Int : 433 ms NORMAL SINUS RHYTHM NORMAL ECG WHEN COMPARED WITH ECG OF 10-FEB-2015 19:28, NO SIGNIFICANT CHANGE WAS FOUND Confirmed by Klever Bradley MD ([id number]) on 10/17/2019 10:17:51 AM Referred By: Confirmed By:Klever Bradley MD
[2019-10-17 10:59] LABS: EPI CELLS 16 /uL (0-25.1); HYALINE CASTS 5 /uL (0-3.1); URINE APPEARANCE CLEAR; URINE BACTERIA ABOVE LINEARITY /uL (0-1359); URINE BILIRUBIN NEGATIVE (NEGATIVE); URINE COLOR YELLOW; URINE GLUCOSE (UA) NEGATIVE (NEGATIVE); URINE KETONE 1+ (NEGATIVE); URINE LEUK ESTERASE NEGATIVE (NEGATIVE); URINE NITRITE NEGATIVE (NEGATIVE); URINE PROTEIN 1+ (NEGATIVE); URINE RBC 41 /uL (0-23.9); URINE UROBILINOGEN 0.2 mg/dL (0.2-1.0); URINE WBC 24 /uL (0-25.8)
--- NOTE | 2019-10-17 14:46 | PN ---
Progress Note (short form) - Note Progress Note: ID consult dictated imp/reccd 49 yo female pmh HTN, recent influenza ! September 24 diagnosed at [facility]- did well this tuesday started having cough, fever and sob with myalgia no one else is sick chest ct c/w covid 19 pneumonia finding c/w covid disease plan rocephin for possible pneumonia add plaquenil for probable covid 19 400 mg po bid for one day the 200 mg po bid for 4 days repeat labs in am
[2019-10-17] MEDS ORDERED: ACETAMINOPHEN 325 MG TABLET (FP) ONE ×2 (14:52→22:47)
[2019-10-17] MEDS: ACETAMINOPHEN 325 MG TABLET (FP) PO PRN ×2 (15:07→22:43)
--- NOTE | 2019-10-17 15:34 | CONS ---
DATE OF CONSULTATION: DATE OF DICTATION: 10/17/2019 CONSULTATION REQUESTED BY: Romel Vela MD HISTORY: This is a 49-year-old woman. She presented to the ER with complaints of fever, cough, myalgia since last Tuesday, with worsening shortness of breath. On September 24 she tested positive for influenza A at [facility]. She was treated symptomatically and she improved. She was feeling well until Tuesday when suddenly she had these symptoms. She reports weakness, body aches, and shortness of breath. She has been having fevers as well. She lives at home with her family. No one is sick. She works from home. PAST MEDICAL HISTORY: Notable for hypertension. PAST SURGICAL HISTORY: Notable for and hysterectomy. In the ER, she had an ABG with a PO2 of 72% on room air. Her white count was 3.6. She had a CAT scan that showed multiple small bilateral upper lobe and right lower lobe ground-glass opacities, with an alveolar infiltrate within the lower lobes bilaterally. She was admitted. She was given ceftriaxone and Zithromax for possible community-acquired pneumonia. I am asked to see her for further evaluation. There is no history of any travel. There is no history of TB. She denies any HIV risk factors. REVIEW OF SYSTEMS: She denies diarrhea or abdominal pain or chest pain. PHYSICAL EXAMINATION: Vital Signs: Her T-max is 100.9 on admission. Her pulse is 95, blood pressure 124/66. Respiratory rate is 18, saturating 98% on room air. HEENT: She is normocephalic. Her eyes are anicteric. Neck: Supple. Lungs: Clear to auscultation. Heart: Regular rate and rhythm. Abdomen: Soft, nontender. Extremities: Without edema. LABORATORY: White count is 2.3, hemoglobin 12.6. Platelets are 104. She has 41% lymphocytes. Her BUN is 13, creatinine 1.1. Urinalysis has 24 white cells. She is HIV negative. Influenza screen is negative, and cultures are pending. Her pneumococcal antigen is negative. Her EKG has a QTc of 433. SUMMARY: This is a 49-year-old woman with a chest CT consistent with COVID pneumonia. I would plan Rocephin for possible pneumonia. Would add Plaquenil for possible COVID-19 given the degree of infiltrates on her x-ray and the relative hypoxemia as well as her history of hypertension. Repeat labs in the morning if she is leukopenic or thrombocytopenic. Further recommendations to follow. Shannan [id number]
--- NOTE | 2019-10-17 17:43 | CON.PULM ---
Consult Consult Specialty:: PULM/CCM Referred by:: Hospitalist Reason for Consultation:: SOB - History of Present Illness Chief Complaint: SOB History of Present Illness: 49 F, HTN. Admitted via the ER due to progressive SOB, nonproductive cough, fevers/chills, sore throat, and myalgia since last Tuesday. Also reports intermittent episodes of nonbloody and non-bilious vomiting. Was recently diagnosed for Influenza B but not treated with Tamiflu. No specific travel history or sick contacts. No hemoptysis or night sweats. CT: bilateral pneumonitis - History Source History Provided By: Patient Limitations to Obtaining History: No Limitations - Past Medical History ...LMP: 10/02/17 - Alcohol/Substance Use Hx Alcohol Use: No - Smoking History Smoking history: Never smoked Home Medications - Allergies Allergies/Adverse Reactions: Allergies Allergy/AdvReac Type Severity Reaction Status Date / Time No Known Allergies Allergy Verified 10/16/19 17:27 - Home Medications Home Medications: Ambulatory Orders Ferrous Sulfate [Feosol] 325 mg PO DAILY 10/19/17 Lisinopril/Hydrochlorothiazide [Lisinopril-Hctz 20-12.5 mg Tab] 10 mg PO DAILY 10/19/17 Oxycodone HCl/Acetaminophen [Percocet 5-325 mg Tablet] 1 - 2 tab PO Q4H #20 tablet MDD 6 10/27/17 Review of Systems - Review of Systems Constitutional: reports: Chills, Fever, Lethargy, Malaise, Weakness. denies: Night Sweats Eyes: reports: No Symptoms HENT: reports: No Symptoms Neck: reports: No Symptoms Cardiovascular: reports: Shortness of Breath. denies: Chest Pain, Edema, Palpitations Respiratory: reports: Cough, SOB, SOB on Exertion. denies: Hemoptysis, Snoring, Wheezing Gastrointestinal: reports: Diarrhea, Vomiting Genitourinary: reports: No Symptoms Breasts: reports: No Symptoms Reported Musculoskeletal: reports: No Symptoms Integumentary: reports: No Symptoms Neurological: reports: No Symptoms Endocrine: reports: No Symptoms Hematology/Lymphatic: reports: No Symptoms Psychiatric: reports: No Symptoms Physical Exam Vital Sings: Vital Signs Temperature 102.8 F H 10/17/19 15:00 Pulse Rate 108 H 10/17/19 15:00 Respiratory Rate 20 10/17/19 15:00 Blood Pressure 130/77 10/17/19 15:00 O2 Sat by Pulse Oximetry (%) 99 10/17/19 15:00 Constitutional: Yes: No Distress, Obese Eyes: Yes: Conjunctiva Clear, EOM Intact HENT: Yes: Atraumatic, Normocephalic Neck: Yes: Supple, Trachea Midline Cardiovascular: Yes: Regular Rate and Rhythm Respiratory: Yes: Cough, Diminished, On Nasal O2, Rhonchi. No: Accessory Muscle Use, SOB, SOB on Exertion, Stridor, Tachypnea, Wheezes ...Inspection: Yes: WNL ...Clubbing: No Gastrointestinal: Yes: Normal Bowel Sounds, Soft, Abdomen, Obese Renal/: Yes: WNL Breast(s): Yes: WNL Musculoskeletal: Yes: WNL Extremities: Yes: WNL Edema: No Peripheral Pulses WNL: Yes Integumentary: Yes: WNL Neurological: Yes: WNL, Alert, Oriented ...Motor Strength: WNL Psychiatric: Yes: WNL, Alert, Oriented Labs: CBC, BMP 10/17/19 06:41 10/17/19 06:41 ABG Results ABG pH 7.46 (7.35-7.45) H 10/16/19 19:15 ABG pCO2 at Pt Temp 39.4 mmHg (35-45) 10/16/19 19:15 ABG pO2 at Pt Temp 72.1 mmHg (80-100) L 10/16/19 19:15 ABG HCO3 27.3 mmol/L (22-27) H 10/16/19 19:15 ABG O2 Sat (Measured) 94.6 % (95-98) L 10/16/19 19:15 ABG O2 Content 21.5 % vol 10/16/19 19:15 ABG Base Excess 3.7 meq/l (-2-2) H 10/16/19 19:15 Imaging - Results Chest X-ray: Report Reviewed, Image Reviewed Cat Scan: Report Reviewed, Image Reviewed Problem List - Problems (1) Suspected 2019 novel coronavirus infection Code(s): R68.89 - OTHER GENERAL SYMPTOMS AND SIGNS (2) Febrile Code(s): R50.9 - FEVER, UNSPECIFIED Qualifiers: Fever type: unspecified Qualified Code(s): R50.9 - Fever, unspecified (3) Leukopenia Code(s): D72.819 - DECREASED WHITE BLOOD CELL COUNT, UNSPECIFIED Qualifiers: Leukopenia type: unspecified Qualified Code(s): D72.819 - Decreased white blood cell count, unspecified (4) Tachycardia Code(s): R00.0 - TACHYCARDIA, UNSPECIFIED (5) URI with cough and congestion Code(s): J06.9 - ACUTE UPPER RESPIRATORY INFECTION, UNSPECIFIED (6) Asthma Code(s): J45.909 - UNSPECIFIED ASTHMA, UNCOMPLICATED (7) High blood pressure Code(s): I10 - ESSENTIAL (PRIMARY) HYPERTENSION Assessment/Plan ABX and Plaquenil per ID Close monitoring of oximetry and low threshold for continuous monitoring VTE prophylaxis Supplemental O2 as needed Avoid systemic steroids No NSAIDS Will follow closely Patient is a High Risk for transmission. Thank you. Dr Salazar
--- NOTE | 2019-10-17 18:19 | PN ---
Progress Note (short form) - Note Progress Note: SUBJECTIVE: feeling a bit better, less SOB, still febrile. OBJECTIVE: Febrile, Tmax 102.8, Hemodynamically Stable. Last Vital Signs Temp Pulse Resp BP Pulse Ox 102.8 F H 108 H 20 130/77 99 10/17/19 15:00 10/17/19 15:00 10/17/19 15:00 10/17/19 15:00 10/17/19 15:00 HEENT - Atraumatic, normocephalic Heart - S1, S2, RRR Lungs - clear to auscultation Abdomen - Soft, non-tender. Bowel Sounds normal. Extremities - no edema, no calf tenderness. Laboratory Results - last 24 hr 10/16/19 10/16/19 10/16/19 19:08 19:08 19:08 WBC RBC Hgb Hct MCV MCH MCHC RDW Plt Count MPV Absolute Neuts (auto) Neutrophils % Lymphocytes % Monocytes % Eosinophils % Basophils % Nucleated RBC % PT with INR 13.80 H INR 1.17 H PTT (Actin FS) 34.9 D-Dimer 1307 H Anticoagulation Therapy Puncture Site ABG pH ABG pCO2 at Pt Temp ABG pO2 at Pt Temp ABG HCO3 ABG O2 Sat (Measured) ABG O2 Content ABG Base Excess Tra Test Carboxyhemoglobin Methemoglobin Patient On Oxygen O2 Delivery Device Oxygen Flow Rate Vent Mode Vent Rate Mechanical Rate Pressure Support Vent Sodium Potassium Chloride Carbon Dioxide Anion Gap BUN Creatinine Est GFR (CKD-EPI)AfAm Est GFR (CKD-EPI)NonAf Random Glucose Serum Osmolality Lactic Acid Calcium Phosphorus Magnesium Ferritin Total Bilirubin Direct Bilirubin AST ALT Alkaline Phosphatase Creatine Kinase Creatine Kinase Index CK-MB (CK-2) Troponin I < 0.02 Total Protein Albumin Urine Color Urine Appearance Urine pH Ur Specific [place] Urine Protein Urine Glucose (UA) Urine Ketones Urine Blood Urine Nitrite Urine Bilirubin Urine Urobilinogen Ur Leukocyte Esterase Urine WBC (Auto) Urine RBC (Auto) Urine Casts (Auto) U Epithel Cells (Auto) Urine Bacteria (Auto) Urine Osmolality Ur Random Sodium COVID-19 (MARIA ESTHER) HIV Ag/Ab Combo Qual Influenza A (Rapid) Influenza B (Rapid) RSV Rapid 10/16/19 10/16/19 10/16/19 19:08 19:08 19:08 WBC 3.6 L RBC 5.47 H Hgb 14.1 Hct 43.5 D MCV 79.6 L MCH 25.8 MCHC 32.4 RDW 14.1 Plt Count 146 MPV 10.1 D Absolute Neuts (auto) 2.1 Neutrophils % 58.9 D Lymphocytes % 32.1 D Monocytes % 8.5 D Eosinophils % 0.1 D Basophils % 0.4 D Nucleated RBC % 0 PT with INR INR PTT (Actin FS) D-Dimer Anticoagulation Therapy Puncture Site ABG pH ABG pCO2 at Pt Temp ABG pO2 at Pt Temp ABG HCO3 ABG O2 Sat (Measured) ABG O2 Content ABG Base Excess Tra Test Carboxyhemoglobin Methemoglobin Patient On Oxygen O2 Delivery Device Oxygen Flow Rate Vent Mode Vent Rate Mechanical Rate Pressure Support Vent Sodium Potassium Chloride Carbon Dioxide Anion Gap BUN Creatinine Est GFR (CKD-EPI)AfAm Est GFR (CKD-EPI)NonAf Random Glucose Serum Osmolality Lactic Acid Calcium Phosphorus Magnesium Ferritin Total Bilirubin Direct Bilirubin AST ALT Alkaline Phosphatase Creatine Kinase Creatine Kinase Index CK-MB (CK-2) Troponin I Total Protein Albumin Urine Color Urine Appearance Urine pH Ur Specific [place] Urine Protein Urine Glucose (UA) Urine Ketones Urine Blood Urine Nitrite Urine Bilirubin Urine Urobilinogen Ur Leukocyte Esterase Urine WBC (Auto) Urine RBC (Auto) Urine Casts (Auto) U Epithel Cells (Auto) Urine Bacteria (Auto) Urine Osmolality Ur Random Sodium COVID-19 (MARIA ESTHER) HIV Ag/Ab Combo Qual Negative Influenza A (Rapid) Negative Influenza B (Rapid) Negative RSV Rapid 10/16/19 10/16/19 10/16/19 19:08 19:08 19:08 WBC RBC Hgb Hct MCV MCH MCHC RDW Plt Count MPV Absolute Neuts (auto) Neutrophils % Lymphocytes % Monocytes % Eosinophils % Basophils % Nucleated RBC % PT with INR INR PTT (Actin FS) D-Dimer Anticoagulation Therapy Puncture Site ABG pH ABG pCO2 at Pt Temp ABG pO2 at Pt Temp ABG HCO3 ABG O2 Sat (Measured) ABG O2 Content ABG Base Excess Tra Test Carboxyhemoglobin Methemoglobin Patient On Oxygen O2 Delivery Device Oxygen Flow Rate Vent Mode Vent Rate Mechanical Rate Pressure Support Vent Sodium 135 L Potassium 3.7 Chloride 100 Carbon Dioxide 25 Anion Gap 10 BUN 12.8 Creatinine 1.3 Est GFR (CKD-EPI)AfAm 56.58 Est GFR (CKD-EPI)NonAf 48.81 Random Glucose 81 Serum Osmolality Lactic Acid 1.4 Calcium 8.5 Phosphorus Magnesium Ferritin Total Bilirubin 0.4 Direct Bilirubin 0.1 AST 27 ALT 24 Alkaline Phosphatase 50 Creatine Kinase Creatine Kinase Index CK-MB (CK-2) Troponin I Total Protein 8.0 Albumin 3.5 Urine Color Urine Appearance Urine pH Ur Specific [place] Urine Protein Urine Glucose (UA) Urine Ketones Urine Blood Urine Nitrite Urine Bilirubin Urine Urobilinogen Ur Leukocyte Esterase Urine WBC (Auto) Urine RBC (Auto) Urine Casts (Auto) U Epithel Cells (Auto) Urine Bacteria (Auto) Urine Osmolality Ur Random Sodium COVID-19 (MARIA ESTHER) HIV Ag/Ab Combo Qual Influenza A (Rapid) Influenza B (Rapid) RSV Rapid Negative 10/16/19 10/16/19 10/17/19 19:08 19:15 05:30 WBC RBC Hgb Hct MCV MCH MCHC RDW Plt Count MPV Absolute Neuts (auto) Neutrophils % Lymphocytes % Monocytes % Eosinophils % Basophils % Nucleated RBC % PT with INR INR PTT (Actin FS) D-Dimer Anticoagulation Therapy No Result Required. Puncture Site No Result Required. ABG pH 7.46 H ABG pCO2 at Pt Temp 39.4 ABG pO2 at Pt Temp 72.1 L ABG HCO3 27.3 H ABG O2 Sat (Measured) 94.6 L ABG O2 Content 21.5 ABG Base Excess 3.7 H Tra Test No Result Required. Carboxyhemoglobin 0.6 Methemoglobin 1.0 Patient On Oxygen No Result Required. O2 Delivery Device No Result Required. Oxygen Flow Rate No Result Required. Vent Mode No Result Required. Vent Rate No Result Required. Mechanical Rate No Result Required. Pressure Support Vent No Result Required. Sodium Potassium Chloride Carbon Dioxide Anion Gap BUN Creatinine Est GFR (CKD-EPI)AfAm Est GFR (CKD-EPI)NonAf Random Glucose Serum Osmolality Lactic Acid Calcium Phosphorus Magnesium Ferritin Total Bilirubin Direct Bilirubin AST ALT Alkaline Phosphatase Creatine Kinase Creatine Kinase Index CK-MB (CK-2) Troponin I Total Protein Albumin Urine Color Yellow Urine Appearance Clear Urine pH 5.0 Ur Specific [place] 1.016 Urine Protein 1+ H Urine Glucose (UA) Negative Urine Ketones 1+ H Urine Blood Negative Urine Nitrite Negative Urine Bilirubin Negative Urine Urobilinogen 0.2 Ur Leukocyte Esterase Negative Urine WBC (Auto) 24 Urine RBC (Auto) 41 Urine Casts (Auto) 5 U Epithel Cells (Auto) 16 Urine Bacteria (Auto) Above linearity Urine Osmolality Ur Random Sodium COVID-19 (MARIA ESTHER) Cancelled HIV Ag/Ab Combo Qual Influenza A (Rapid) Influenza B (Rapid) RSV Rapid 10/17/19 10/17/19 10/17/19 05:30 06:41 06:41 WBC 2.3 L RBC 4.87 Hgb 12.6 Hct 38.7 MCV 79.5 L MCH 25.8 MCHC 32.5 RDW 14.2 Plt Count 104 L D MPV 9.2 Absolute Neuts (auto) 1.1 L Neutrophils % 50.6 Lymphocytes % 41.1 H D Monocytes % 7.6 Eosinophils % 0.3 D Basophils % 0.4 Nucleated RBC % 0 PT with INR INR PTT (Actin FS) D-Dimer Anticoagulation Therapy Puncture Site ABG pH ABG pCO2 at Pt Temp ABG pO2 at Pt Temp ABG HCO3 ABG O2 Sat (Measured) ABG O2 Content ABG Base Excess Tra Test Carboxyhemoglobin Methemoglobin Patient On Oxygen O2 Delivery Device Oxygen Flow Rate Vent Mode Vent Rate Mechanical Rate Pressure Support Vent Sodium 137 Potassium 3.3 L Chloride 103 Carbon Dioxide 29 Anion Gap 6 L BUN 13.1 Creatinine 1.1 Est GFR (CKD-EPI)AfAm 69.24 Est GFR (CKD-EPI)NonAf 59.74 Random Glucose 76 Serum Osmolality Lactic Acid Calcium 7.7 L Phosphorus 3.1 Magnesium 1.9 Ferritin 240.6 Total Bilirubin 0.4 Direct Bilirubin AST 24 ALT 22 Alkaline Phosphatase 40 L Creatine Kinase 500 H Creatine Kinase Index No Result Required. CK-MB (CK-2) < 1.0 Troponin I Total Protein 6.6 Albumin 3.0 L Urine Color Urine Appearance Urine pH Ur Specific [place] Urine Protein Urine Glucose (UA) Urine Ketones Urine Blood Urine Nitrite Urine Bilirubin Urine Urobilinogen Ur Leukocyte Esterase Urine WBC (Auto) Urine RBC (Auto) Urine Casts (Auto) U Epithel Cells (Auto) Urine Bacteria (Auto) Urine Osmolality 443 Ur Random Sodium 32 L COVID-19 (MARIA ESTHER) HIV Ag/Ab Combo Qual Influenza A (Rapid) Influenza B (Rapid) RSV Rapid 10/17/19 06:41 WBC RBC Hgb Hct MCV MCH MCHC RDW Plt Count MPV Absolute Neuts (auto) Neutrophils % Lymphocytes % Monocytes % Eosinophils % Basophils % Nucleated RBC % PT with INR INR PTT (Actin FS) D-Dimer Anticoagulation Therapy Puncture Site ABG pH ABG pCO2 at Pt Temp ABG pO2 at Pt Temp ABG HCO3 ABG O2 Sat (Measured) ABG O2 Content ABG Base Excess Tra Test Carboxyhemoglobin Methemoglobin Patient On Oxygen O2 Delivery Device Oxygen Flow Rate Vent Mode Vent Rate Mechanical Rate Pressure Support Vent Sodium Potassium Chloride Carbon Dioxide Anion Gap BUN Creatinine Est GFR (CKD-EPI)AfAm Est GFR (CKD-EPI)NonAf Random Glucose Serum Osmolality 285 Lactic Acid Calcium Phosphorus Magnesium Ferritin Total Bilirubin Direct Bilirubin AST ALT Alkaline Phosphatase Creatine Kinase Creatine Kinase Index CK-MB (CK-2) Troponin I Total Protein Albumin Urine Color Urine Appearance Urine pH Ur Specific [place] Urine Protein Urine Glucose (UA) Urine Ketones Urine Blood Urine Nitrite Urine Bilirubin Urine Urobilinogen Ur Leukocyte Esterase Urine WBC (Auto) Urine RBC (Auto) Urine Casts (Auto) U Epithel Cells (Auto) Urine Bacteria (Auto) Urine Osmolality Ur Random Sodium COVID-19 (MARIA ESTHER) HIV Ag/Ab Combo Qual Influenza A (Rapid) Influenza B (Rapid) RSV Rapid Current Medications Generic Name Dose Route Start Last Admin Trade Name Freq PRN Reason Stop Dose Admin Acetaminophen 650 mg 10/17/19 00:09 10/17/19 15:07 Tylenol - PO 650 mg Q6H PRN Administration FEVER Enoxaparin Sodium 40 mg 10/17/19 10:00 10/17/19 10:08 Lovenox - SQ 40 mg DAILY LILIAN Administration Hydroxychloroquine Sulfate 400 mg 10/17/19 22:00 Plaquenil - PO 10/18/19 10:01 BID LILIAN Ceftriaxone Sodium 1 gm/ 50 mls @ 100 mls/hr 10/17/19 10:00 10/17/19 10:00 Dextrose IVPB 100 mls/hr DAILY LILIAN Administration Lisinopril 20 mg 10/17/19 10:00 10/17/19 10:09 Prinivil PO 20 mg DAILY LILIAN Administration Home Medications Medication Instructions Recorded Ferrous Sulfate [Feosol] 325 mg PO DAILY 10/19/17 Lisinopril/Hydrochlorothiazide 10 mg PO DAILY 10/19/17 [Lisinopril-Hctz 20-12.5 mg Tab] Oxycodone HCl/Acetaminophen 1 - 2 tab PO Q4H #20 tablet MDD 6 10/27/17 [Percocet 5-325 mg Tablet] ASSESSMENT/PLAN: 49 year old female with histor of HTN, KITA, recent Influenza positive result (not treated), presents with worsening SOB, cough, fevers, chills, fatigue, and intermittent episodes of vomiting, found to have Hypoxia (down to 70s on RA). Chest CT - small bilateral upper lobe and right lower lobe groundglass infiltrates. Alveolar infiltrates within the lower lobes bilaterally. Pulmonary artery appears to be slightly prominent. Enlargement of the partially imaged left thyroid lobe. 1. Acute Hypoxic Respiratory Failure secondary to bilateral pneumonia, possible COVID 19 COVID 19 pending Febrile, Leukopenia Continue Ceftriaxone/Plaquenil as per ID. Azithromycin discontinued. Contact/Airborne isolation ID/Pulmonary following. 2. Enlarged Left Thyroid lobe - needs Thyroid US as out-patient. 3. HTN - normally on Lisinopril/HCTZ, now held. DVT Px - Lovenox SQ Visit type - Emergency Visit Emergency Visit: Yes ED Registration Date: 10/16/19 Care time: The patient presented to the Emergency Department on the above date and was hospitalized for further evaluation of their emergent condition. - New Patient This patient is new to me today: Yes Date on this admission: 10/17/19 - Critical Care Critical Care patient: No - Discharge Referral Referred to [facility] Med P.C.: No
[2019-10-17] MEDS ORDERED: HYDROXYCHLOROQUINE SO4 200 MG TABLET (FP) ONE (22:48)
[2019-10-17] MEDS: HYDROXYCHLOROQUINE SO4 200 MG TABLET (FP) PO SCH (23:25)
[2019-10-18] MEDS ORDERED: ONDANSETRON 4 MG/2 ML VIAL IVPUSH PRN (08:13)
[2019-10-18 08:27] LABS: BASO % 0.2 % (0-2.0); EOS % 0.1 % (0-4.5); HEMATOCRIT 36.1 % (32.4-45.2); HEMOGLOBIN 11.7 GM/dL (10.7-15.3); LYMPH % 32.3 % (8-40); MCH 25.8 pg (25.7-33.7); MCHC 32.4 g/dl (32.0-36.0); MEAN CELL VOLUME 79.7 fl (80-96); MEAN PLT VOLUME 9.4 fl (7.5-11.1); MONO % 6.4 % (3.8-10.2); PLATELET COUNT 106 K/MM3 (134-434); RBC 4.53 M/mm3 (3.60-5.2); WHITE BLOOD COUNT 2.8 K/mm3 (4.0-10.0)
[2019-10-18 08:49] LABS: BILIRUBIN,TOTAL 0.4 mg/dL (0.2-1); BLOOD UREA NITROGEN 7.4 mg/dL (7-18); CALCIUM 7.6 mg/dL (8.5-10.1); CREATININE 0.9 mg/dL (0.55-1.3); MAGNESIUM 1.9 mg/dL (1.8-2.4); POTASSIUM 3.7 mmol/L (3.5-5.1); TOT PROT 6.6 g/dl (6.4-8.2)
[2019-10-18] MEDS ORDERED: cefTRIAXone SODIUM 1 GM VIAL ONE (09:38)
[2019-10-18] MEDS ORDERED: DEXTROSE 5%-WATER - 50 ML IVPB ONE (09:38)
[2019-10-18] MEDS: CEFTRIAXONE 1 GM in DEXTROSE 5%-WATER - 50 ML IVPB SCH (09:48)
[2019-10-18] MEDS: ENOXAPARIN NA (PORCINE) 40 MG/0.4 ML DISP.SYRIN SQ SCH (09:49)
[2019-10-18] MEDS: HYDROXYCHLOROQUINE SO4 200 MG TABLET (FP) PO SCH (09:50)
[2019-10-18] MEDS: ACETAMINOPHEN 325 MG TABLET (FP) PO PRN ×2 (11:29→21:36)
--- NOTE | 2019-10-18 12:54 | PN ---
Progress Note (short form) - Note Progress Note: PULMONARY Feels slightly better. Denies shortness of breath but with nonproductive cough. Still febrile. Poor appetite. Vital Signs Period Temp Pulse Resp BP Sys/Sommers Pulse Ox Last 24 Hr 99.0 F-102.8 F 88-111 18-20 114-140/75-88 97-99 Gen: NAD at rest Heart: RRR Lung: decreased breath sounds at the bases Abd: soft, nontender Ext: no edema CBC, BMP 10/18/19 07:00 10/18/19 07:00 Active Medications Acetaminophen (Tylenol -) 650 mg PO Q6H PRN PRN Reason: FEVER Last Admin: 10/18/19 11:29 Dose: 650 mg Documented by: Enoxaparin Sodium (Lovenox -) 40 mg SQ DAILY LILIAN Last Admin: 10/18/19 09:49 Dose: 40 mg Documented by: Ceftriaxone Sodium 1 gm/ (Dextrose) 50 mls @ 100 mls/hr IVPB DAILY LILIAN Last Admin: 10/18/19 09:48 Dose: 100 mls/hr Documented by: Ondansetron HCl (Zofran Injection) 4 mg IVPUSH Q6H PRN PRN Reason: NAUSEA A/P Suspected COVID-19 Infection Leukopenia Thrombocytopenia HTN - on empiric antibiotics - f/u cultures, serologies - O2 to keep SpO2 >90% - PO as tolerated - DVT prophylaxis
--- NOTE | 2019-10-18 14:26 | PN ---
Progress Note (short form) - Note Progress Note: SUBJECTIVE: Feeling a bit better, less SOB, cough +, still febrile. OBJECTIVE: Still febrile, T 102.6, Hemodynamically Stable. Last Vital Signs Temp Pulse Resp BP Pulse Ox 99.0 F 88 20 120/80 97 10/18/19 10:00 10/18/19 10:00 10/18/19 10:00 10/18/19 10:00 10/18/19 04:48 Heart - S1, S2, RRR Lungs - clear to auscultation Abdomen - Soft, non-tender. Bowel Sounds normal. Extremities - no edema, no calf tenderness. Laboratory Results - last 24 hr 10/17/19 10/17/19 10/18/19 05:30 09:03 07:00 WBC 2.8 L RBC 4.53 Hgb 11.7 Hct 36.1 MCV 79.7 L MCH 25.8 MCHC 32.4 RDW 14.0 Plt Count 106 L MPV 9.4 Absolute Neuts (auto) 1.7 Neutrophils % 61.0 D Lymphocytes % 32.3 D Monocytes % 6.4 Eosinophils % 0.1 Basophils % 0.2 Nucleated RBC % 0 Sodium Potassium Chloride Carbon Dioxide Anion Gap BUN Creatinine Est GFR (CKD-EPI)AfAm Est GFR (CKD-EPI)NonAf Random Glucose Calcium Magnesium Total Bilirubin AST ALT Alkaline Phosphatase Total Protein Albumin Procalcitonin 0.06 Ur Random Sodium 32 L 10/18/19 07:00 WBC RBC Hgb Hct MCV MCH MCHC RDW Plt Count MPV Absolute Neuts (auto) Neutrophils % Lymphocytes % Monocytes % Eosinophils % Basophils % Nucleated RBC % Sodium 135 L Potassium 3.7 Chloride 103 Carbon Dioxide 26 Anion Gap 6 L BUN 7.4 Creatinine 0.9 Est GFR (CKD-EPI)AfAm 88.25 Est GFR (CKD-EPI)NonAf 76.14 Random Glucose 79 Calcium 7.6 L Magnesium 1.9 Total Bilirubin 0.4 AST 30 ALT 21 Alkaline Phosphatase 42 L Total Protein 6.6 Albumin 3.0 L Procalcitonin Ur Random Sodium Current Medications Generic Name Dose Route Start Last Admin Trade Name Freq PRN Reason Stop Dose Admin Acetaminophen 650 mg 10/17/19 00:09 10/18/19 11:29 Tylenol - PO 650 mg Q6H PRN Administration FEVER Enoxaparin Sodium 40 mg 10/17/19 10:00 10/18/19 09:49 Lovenox - SQ 40 mg DAILY LILIAN Administration Ceftriaxone Sodium 1 gm/ 50 mls @ 100 mls/hr 10/17/19 10:00 10/18/19 09:48 Dextrose IVPB 100 mls/hr DAILY LILIAN Administration Ondansetron HCl 4 mg 10/18/19 08:13 Zofran Injection IVPUSH Q6H PRN NAUSEA Home Medications Medication Instructions Recorded Ferrous Sulfate [Feosol] 325 mg PO DAILY 10/19/17 Lisinopril/Hydrochlorothiazide 10 mg PO DAILY 10/19/17 [Lisinopril-Hctz 20-12.5 mg Tab] Oxycodone HCl/Acetaminophen 1 - 2 tab PO Q4H #20 tablet MDD 6 10/27/17 [Percocet 5-325 mg Tablet] ASSESSMENT/PLAN: 49 year old female with history of HTN, KITA, recent Influenza positive result (not treated), presents with worsening SOB, cough, fevers, chills, fatigue, and intermittent episodes of vomiting, found to have Hypoxia (down to 70s on RA). Chest CT - small bilateral upper lobe and right lower lobe groundglass infiltrates. Alveolar infiltrates within the lower lobes bilaterally. Pulmonary artery appears to be slightly prominent. Enlargement of the partially imaged left thyroid lobe. 1. Acute Hypoxic Respiratory Failure secondary to bilateral pneumonia, possible COVID [address] chest - bilateral infiltrates. Febrile, Leukopenia (not neutropenic) Continue Ceftriaxone. Plaquenil as per ID discretion. Azithromycin discontinued. Contact/Airborne isolation ID/Pulmonary following. 2. UTI, Urine Cx - LFNB, final ID and Sens pending. On Ceftriaxone. 3. HTN - normally on Lisinopril/HCTZ, now held. 4. Enlarged Left Thyroid lobe - needs Thyroid US as out-patient. 5. Thrombocytopenia, likely consumptive secondary to fever/infection - will monitor. DVT Px - Continue Lovenox SQ for now (will monitor platelet levels). Visit type - Emergency Visit Emergency Visit: Yes ED Registration Date: 10/16/19 Care time: The patient presented to the Emergency Department on the above date and was hospitalized for further evaluation of their emergent condition. - New Patient This patient is new to me today: No - Critical Care Critical Care patient: No - Discharge Referral Referred to [facility] Med P.C.: No
[2019-10-18 17:08] VITALS: BMI 39.2
[2019-10-18] MEDS ORDERED: PT OWN MED DRAWER 7, Y5N ONE (18:09)
[2019-10-19] MEDS ORDERED: cefTRIAXone SODIUM 1 GM VIAL ONE (09:08)
[2019-10-19] MEDS ORDERED: DEXTROSE 5%-WATER - 50 ML IVPB ONE (09:08)
[2019-10-19] MEDS: ACETAMINOPHEN 325 MG TABLET (FP) PO PRN ×2 (09:13→15:17)
[2019-10-19] MEDS: CEFTRIAXONE 1 GM in DEXTROSE 5%-WATER - 50 ML IVPB SCH (09:13)
[2019-10-19] MEDS: ENOXAPARIN NA (PORCINE) 40 MG/0.4 ML DISP.SYRIN SQ SCH (09:14)
--- NOTE | 2019-10-19 12:30 | PN ---
Progress Note (short form) - Note Progress Note: PULMONARY Feels better today. Less short of breath, able to ambulate without dyspnea. Still febrile. Saturating well on room air. Vital Signs Period Temp Pulse Resp BP Sys/Sommers Pulse Ox Last 24 Hr 100.4 F-102.6 F 84-116 20-24 112-113/70-73 96 Gen: NAD at rest Heart: RRR Lung: decreased breath sounds at the bases Abd: soft, nontender Ext: no edema CBC, BMP 10/18/19 07:00 10/18/19 07:00 Active Medications Acetaminophen (Tylenol -) 650 mg PO Q6H PRN PRN Reason: FEVER Last Admin: 10/19/19 09:13 Dose: 650 mg Documented by: Enoxaparin Sodium (Lovenox -) 40 mg SQ DAILY LILIAN Last Admin: 10/19/19 09:14 Dose: 40 mg Documented by: Ceftriaxone Sodium 1 gm/ (Dextrose) 50 mls @ 100 mls/hr IVPB DAILY LILIAN Last Admin: 10/19/19 09:13 Dose: 100 mls/hr Documented by: Ondansetron HCl (Zofran Injection) 4 mg IVPUSH Q6H PRN PRN Reason: NAUSEA A/P COVID-19 Infection Leukopenia Thrombocytopenia HTN - on empiric antibiotics - f/u cultures - PO as tolerated - DVT prophylaxis - can d/c home from pulmonary standpoint, instructed to self quarantine at home
[2019-10-19 14:12] LABS: BASO % 0.3 % (0-2.0); EOS % 0.1 % (0-4.5); HEMATOCRIT 37.7 % (32.4-45.2); HEMOGLOBIN 12.2 GM/dL (10.7-15.3); LYMPH % 24.3 % (8-40); MCH 25.7 pg (25.7-33.7); MCHC 32.2 g/dl (32.0-36.0); MEAN CELL VOLUME 79.7 fl (80-96); MEAN PLT VOLUME 9.8 fl (7.5-11.1); MONO % 5.3 % (3.8-10.2); PLATELET COUNT 113 K/MM3 (134-434); RBC 4.73 M/mm3 (3.60-5.2); WHITE BLOOD COUNT 3.7 K/mm3 (4.0-10.0)
[2019-10-19 15:09] VITALS: BP 120/80; PULSE 81
[2019-10-19 16:29] VITALS: TEMP 101.8
--- NOTE | 2019-10-19 16:43 | PN ---
Progress Note (short form) - Note Progress Note: SUBJECTIVE: Feeling better, less SOB, cough +, still febrile. OBJECTIVE: Still febrile, T 102.6, Hemodynamically Stable. Last Vital Signs Temp Pulse Resp BP Pulse Ox 101.8 F H 81 24 H 120/80 96 10/19/19 16:29 10/19/19 14:00 10/19/19 14:00 10/19/19 14:00 10/18/19 21:00 Heart - S1, S2, RRR Lungs - clear to auscultation Abdomen - Soft, non-tender. Bowel Sounds normal. Extremities - no edema, no calf tenderness. Laboratory Results - last 24 hr 10/19/19 13:15 WBC 3.7 L RBC 4.73 Hgb 12.2 Hct 37.7 MCV 79.7 L MCH 25.7 MCHC 32.2 RDW 14.0 Plt Count 113 L MPV 9.8 Absolute Neuts (auto) 2.6 Neutrophils % 70.0 Lymphocytes % 24.3 D Monocytes % 5.3 Eosinophils % 0.1 Basophils % 0.3 Nucleated RBC % 0 Discharge Medications Medication Instructions Recorded Azithromycin [Zithromax 250mg 250 mg PO DAILY 5 Days #6 tablet 10/19/19 Tablets -] Cefpodoxime Proxetil [Vantin -] 200 mg PO Q12H 4 Days #8 tablet 10/19/19 Chlorthalidone 12.5 mg PO DAILY 10/19/19 Lisinopril 20 mg PO DAILY 10/19/19 ASSESSMENT/PLAN: 49 year old female with history of HTN, KITA, recent Influenza positive result (not treated), presents with worsening SOB, cough, fevers, chills, fatigue, and intermittent episodes of vomiting, found to have Hypoxia (down to 70s on RA). Chest CT - small bilateral upper lobe and right lower lobe groundglass infiltrates. Alveolar infiltrates within the lower lobes bilaterally. Pulmonary artery appears to be slightly prominent. Enlargement of the partially imaged left thyroid lobe. 1. Acute Hypoxic Respiratory Failure secondary to bilateral pneumonitis secondary to COVID [address] chest - bilateral infiltrates. Febrile, Leukopenia (not neutropenic) treated with Ceftriaxone. Can be discharged on Cefpodoxime and azithromycin ID/Pulmonary evaluated. 2. UTI, Urine Cx - Ecoli. treated with Ceftriaxone, can be discharged on Cefpodoxime. 3. HTN - can resume anti-hypertensives on discharge. 4. Enlarged Left Thyroid lobe - needs Thyroid US as out-patient. 5. Thrombocytopenia, likely consumptive secondary to fever/infection - stable. No bruising/petechiae. Medically optimized for discharge due to improvement in symptoms. Tylenol PRN for fever. Counselled regarding self-quarantine and social distancing for COVID. Visit type - Emergency Visit Emergency Visit: Yes ED Registration Date: 10/16/19 Care time: The patient presented to the Emergency Department on the above date and was hospitalized for further evaluation of their emergent condition. - New Patient This patient is new to me today: No - Critical Care Critical Care patient: No - Discharge Referral Referred to [facility] Med P.C.: No
--- NOTE | 2019-10-19 17:29 | DS ---
Physical Exam: SUBJECTIVE: Patient seen and examined OBJECTIVE: Vital Signs Period Temp Pulse Resp BP Sys/Sommers Pulse Ox Last 24 Hr 101.2 F-103.8 F 74-116 20-27 113-130/73-80 96 PHYSICAL EXAM GENERAL: The patient is awake, alert, and fully oriented, in no acute distress. HEAD: Normal with no signs of trauma. EYES: PERRL, extraocular movements intact, sclera anicteric, conjunctiva clear. ENT: Ears normal, nares patent, oropharynx clear without exudates, moist mucous membranes. NECK: Trachea midline, full range of motion, supple. LUNGS: Breath sounds equal, clear to auscultation bilaterally, no wheezes, no crackles, no accessory muscle use. HEART: Regular rate and rhythm, S1, S2 without murmur, rub or gallop. ABDOMEN: Soft, nontender, nondistended, normoactive bowel sounds, no guarding, no rebound, no hepatosplenomegaly, no masses. EXTREMITIES: 2+ pulses, warm, well-perfused, no edema. NEUROLOGICAL: Cranial nerves II through XII grossly intact. Normal speech, gait not observed. PSYCH: Normal mood, normal affect. SKIN: Warm, dry, normal turgor, no rashes or lesions noted. LABS Laboratory Results - last 24 hr 10/19/19 13:15 WBC 3.7 L RBC 4.73 Hgb 12.2 Hct 37.7 MCV 79.7 L MCH 25.7 MCHC 32.2 RDW 14.0 Plt Count 113 L MPV 9.8 Absolute Neuts (auto) 2.6 Neutrophils % 70.0 Lymphocytes % 24.3 D Monocytes % 5.3 Eosinophils % 0.1 Basophils % 0.3 Nucleated RBC % 0 HOSPITAL COURSE: Date of Admission:10/16/19 Date of Discharge: 10/19/19 Minutes to complete discharge: 36 Discharge Summary Problems reviewed: Yes Reason For Visit: FEVER,LEUKOPENIA,TACHYCARDIA Current Active Problems Febrile (Acute) Leukopenia (Acute) Suspected 2019 novel coronavirus infection (Acute) Tachycardia (Acute) URI with cough and congestion (Acute) Condition: Stable - Instructions Diet, Activity, Other Instructions: You presented to the hospital due to SOB, fever and cough. You were tested for COVID-19 and you tested positive. You tested negative for the flu. Your blood cultures were negative to date. Your urine culture was also positive for a UTI. You were treated with antibiotics with improvement and will be sent home on antibiotics. Please follow the included instructions in the COVID-19 packet. Medication Changes: 1. Continue Vantin 200mg twice daily for 4 more days. 2. Start taking Azithromycin. You will taking 500mg for one day and then 250mg for 4 more days. Follow up with the following physicians: 1. Please follow up with your primary care provider within one week of discharge for further management of your medical conditions. Activity and Diet 1. Please monitor your diet as you need to intake foods with less salts and drink plenty of fluids. Continue all your other medications as prescribed Please return to the ER if you have any signs or symptoms of chest pain, shortness of breath, uncontrollable fever, chills, nausea, vomiting, numbness, tingling, or weakness in any part of your body, changes in vision, or slurred speech. Please return to the ER if symptoms persist, worsen, or new symptoms arise. Referrals: Judith Mora MD [Primary Care Provider] - Disposition: HOME - Home Medications Comprehensive Discharge Medication List: Ambulatory Orders Azithromycin [Zithromax 250mg Tablets -] 250 mg PO DAILY 5 Days #6 tablet 10/19/19 Cefpodoxime Proxetil [Vantin -] 200 mg PO Q12H 4 Days #8 tablet 10/19/19 Chlorthalidone 12.5 mg PO DAILY 10/19/19 Lisinopril 20 mg PO DAILY 10/19/19 This patient is new to me today: Yes Date on this admission: 10/19/19 Emergency Visit: Yes ED Registration Date: 10/16/19 Care time: The patient presented to the Emergency Department on the above date and was hospitalized for further evaluation of their emergent condition. Critical Care patient: No - Discharge Referral Referred to [facility] No ATTENDING PHYSICIAN STATEMENT I saw and evaluated the patient. I reviewed the resident's note and discussed the case with the resident. I agree with the resident's findings and plan as documented. SUBJECTIVE: OBJECTIVE: ASSESSMENT AND PLAN:
== END 2019-10-19 17:37 | disposition home or self-care (01) | DRG 193 ==
LOC: JER 17:06 → JERBED 22:41 → J8W 10-18 04:01
PROVIDERS: ADMIT Internal Medicine
DX: J12.89 Other viral pneumonia (principal); J96.01 Acute respiratory failure with hypoxia; N39.0 Urinary tract infection, site not specified; E87.1 Hypo-osmolality and hyponatremia; B97.29 Other coronavirus as the cause of diseases classified elsewhere; J06.9 Acute upper respiratory infection, unspecified; R50.9 Fever, unspecified; D72.819 Decreased white blood cell count, unspecified; R00.0 Tachycardia, unspecified; J45.909 Unspecified asthma, uncomplicated; E86.0 Dehydration; I10 Essential (primary) hypertension; D69.6 Thrombocytopenia, unspecified; B96.20 Unspecified Escherichia coli [E. coli] as the cause of diseases classified elsewhere; E66.01 Morbid (severe) obesity due to excess calories; Z68.39 Body mass index [BMI] 39.0-39.9, adult
CPT/HCPCS: 36415; 36600; 71045-TC-FY; 71250-TC; 80053; 81003; 82248; 82308; 82375; 82550; 82553; 82728; 82803; 83050; 83605; 83735; 83930; 83935; 84100; 84300; 84484; 85025; 85379; 85610; 85730; 87040; 87070; 87086; 87186; 87205; 87389; 87633; 87804; 87807; 87899; 93005; 93010; 99285-25; J7030; U0001; U0002